=== PATIENT | male | born 1955 | race Caucasian/White ===

== ENCOUNTER → 2017-03-18 | Outpatient (CLI) | payer OTHER ==
[~2017-03-18] MED LIST: ATIVAN1 MG PO; PERCOCET 5/31 TABLET PO
== END | disposition home or self-care (01) ==
LOC: CDC 10:17
DX: M25.532 Pain in left wrist (principal); S52.532D Colles' fracture of left radius, subsequent encounter for closed fracture with routine healing; R94.31 Abnormal electrocardiogram [ECG] [EKG]
CPT/HCPCS: 93000